=== PATIENT | female | born 1965 | race Two or more races ===

== ENCOUNTER 2021-09-12 11:50 | Emergency (ER) | payer BC, OTHER ==
[~2021-09-12] VITALS: Ht 162.6 cm; Wt 72.6 kg
[2021-09-12] MEDS ORDERED: cefTRIAXone SOD 1,000 MG VL IM ONE (16:15)
[2021-09-12] MEDS ORDERED: methylPREDNISolone SOD SUCC 125 MG/2 ML VL IM ONE (16:15)
[2021-09-12] MEDS ORDERED: SODIUM CHLORIDE 0.9% 1,000 ML IV ONE (16:45)
[2021-09-12] MEDS ORDERED: DOXYCYCLINE 100MG/250ML 250 ML IV ONE (16:45)
[2021-09-12] MEDS ORDERED: ALBUAER3 IN (17:41)
[2021-09-12] MEDS ORDERED: PRED20TA2 PO (17:41)
[2021-09-12] MEDS ORDERED: DOXY-286 PO (17:41)
[2021-09-12 18:46] VITALS: BP 102/56
== END 2021-09-12 18:55 | disposition home or self-care (01) ==
LOC: ER 11:50
DX: U07.1 COVID-19 (principal); J12.82 Pneumonia due to coronavirus disease 2019
CPT/HCPCS: 36415; 71046; 87426; 93005; 96365; 96372; 99285; C9803; J0696; J2930; J3490; J7030; U0003